=== PATIENT | female | born 1960 | race Caucasian/White ===

== ENCOUNTER 2018-05-15 08:14 | Inpatient (IN) ==
--- NOTE | 2018-05-14 21:26 | Discharge Summary ---
<Isael Whitfield - Last Filed: 05/15/18 08:39> Orders not resulted at time of discharge: Pending orders 05/15/18 00:01 XR shoulder complete LT [XR] Routine H/H [Hemoglobin and Hematocrit] [HEME] Routine Date of Encounter: 05/15/18 - Discharge Diagnosis (1) Obesity (BMI 30.0-34.9) Priority: Secondary Status: Chronic (2) HTN (hypertension) Priority: Secondary Status: Chronic Qualifiers: Hypertension type: essential hypertension Qualified Code(s): I10 - Essential (primary) hypertension (3) Status post reverse total arthroplasty of left shoulder Priority: Primary Status: Acute (4) Rotator cuff arthropathy of left shoulder Priority: Primary Status: Chronic - Hospital Course Hospital course: Ms. Bah is a 57 year old female - Time Spent with Patient Total time spent providing and/or coordinating discharge services: - Discharge Medications Home Medications: Escitalopram [Lexapro] 10 mg PO DAILY 10/16/16 [History] Losartan Potassium [Cozaar] 50 mg PO DAILY 10/16/16 [History] OxyCODONE Immed Rel [Roxicodone 5 MG] 5 mg PO Q6HR PRN 7 Days #28 tablet [Rx] BuPROPion XL (24 HR) [Wellbutrin XL] 150 mg PO DAILY 05/15/18 [History] Calcium Carbonate [Calcium] 1,200 mg PO DAILY 05/15/18 [History] Cholecalciferol (D-3) [Vitamin D] 1,000 unit PO DAILY 05/15/18 [History] Multivitamin [One Daily Essential] 1 tab PO DAILY 05/15/18 [History] Allergies/Adverse Reactions: 3 Allergy/AdvReac Type Severity Reaction Status Date / Time Poison Anna Extract Allergy Hives Verified 05/15/18 13:34 prednisone AdvReac See Verified 05/15/18 13:34 Comments Primary care physician: Rosana Gallagher CNP - Patient Status Disposition: Home, Self-Care Condition: Good - Discharge Instructions Follow Up With: Rosana Gallagher CNP [Primary Care Provider] - <Renee Casas - Last Filed: 05/15/18 17:37> Date of Encounter: 05/15/18 Time of Encounter: 17:37 - Discharge Diagnosis (1) Status post reverse total arthroplasty of left shoulder Priority: Primary Status: Acute Comments: Opsite dressing, leave intact until first post-operative visit. Zipline in place , plan to remove at post-operative day #14-16. If dressing becomes >50% saturated, contact office, remove dressing and place appropriate dressing in its place. Do not allow for dressing to get wet. Shoulder Precautions x 6 weeks. Apply cold therapy wrap 3-6x/day for 20 minutes at a time. Encourage ambulation throughout the day. Use Incentive spirometer 10x/hour. Elevate affected extremity above heart as tolerated. NWB to affected upper extremity x 6 weeks. Will remove brace at first post-operative appointment. OK to remove during PT/ OT and Home exercises. (2) Rotator cuff arthropathy of left shoulder Priority: Primary Status: Chronic (3) HTN (hypertension) Priority: Secondary Status: Chronic Qualifiers: Hypertension type: essential hypertension Qualified Code(s): I10 - Essential (primary) hypertension - Hospital Course Hospital course: Ms. Bah is a 57 year old female, s/p Left TSR-reverse, history of HTN. Patient doing well; with uneventful post-operative course. Stable for discharge. Afebrile, vital signs stable. Labs reviewed. H/H - stable, asymptomatic Pain control: adequate Participating in PT. All questions and concerns addressed. Educated on use of incentive spirometer. Encouraged ambulation and proper hydration. Patient educated on post-operative restrictions and post-operative care. Assessment and plan: Continue with postoperative care Discharge plan: Home, discharge today. - Time Spent with Patient Total time spent providing and/or coordinating discharge services: Primary care physician: Rosana Gallagher CNP - Patient Status Functional capacity at discharge: independent ambulation Overall status at discharge: patient is back to baseline - Diet and Activity Activity: as per physical therapy Diet: advance to your usual diet
--- NOTE | 2018-05-15 08:39 | History & Physical Report ---
Date of Encounter: 05/15/18 Time of Encounter: 08:38 24 Hour HP Update - Instructions Instructions: If the History and Physical is less than 30 days old and was completed prior to A.M. admission and or procedure and has NOT been updated on calendar day of procedure please complete this update prior to performing procedure. - Update Patient reports changes in Medical Condition: No Changes in examination, assessment, or condition: No Changes in Medication: No Preop tests/diagnostics Reviewed: Yes Surgery Remains Indicated: Yes Consent for Planned Operative Procedure(s) Verified: Yes - Pre-Operative Checklist Preoperative Checklist Indicated: No Prophylactic Antibiotic Ordered: Yes Is VTE Prophylaxis Indicated?: Yes
[2018-05-15] MEDS ORDERED: Famotidine 20 MG/2 ML VIAL IVP ONE (08:43)
[2018-05-15] MEDS ORDERED: Acetaminophen IV 1,000 MG/100 ML INFUS..BTL IVPB ONE (08:44)
[2018-05-15] MEDS ORDERED: Ringers Solution, Lactated 1,000 ML IVC SCH ×2 (08:45→12:08)
[2018-05-15] MEDS ORDERED: CeFAZolin Syr 2,000MG/20 ML 2,000 MG/20 ML SYRINGE IVPB ONE (09:06)
[2018-05-15] MEDS ORDERED: Tetracaine/PF 20 MG/2 ML AMPUL ONE (09:11)
[2018-05-15] MEDS ORDERED: Bupivacaine/Clonidine Syringe 1 EACH SYRINGE ONE (09:11)
[2018-05-15] MEDS ORDERED: ROPIVACAINE HCL/PF 0.5% 30 ML VIAL ONE (09:11)
--- NOTE | 2018-05-15 09:12 | Anesthesia Evaluation PreOp ---
Date of Encounter: 05/15/18 Time of Encounter: 09:10 - Past History Planned Operation: Rverse Ball TotalShoulder Replacement Cardiac History: HTN, Hyperlipidemia Pulmonary History: Denies Any Significant HX DONOR SERVICES TECHNICIAN History: Denies Any Significant HX Other Medical History: Denies Any Significant HX Anesthesia History: No Prior Anesthetic Complications Alcohol Use: occasionally Drug use: none Medications and Allergies Bupropion HCl [Wellbutrin Xl] 300 mg PO DAILY 10/16/16 [History] Escitalopram [Lexapro] 10 mg PO DAILY 10/16/16 [History] Losartan Potassium [Cozaar] 50 mg PO DAILY 10/16/16 [History] Multivitamin [Multi-Day Vitamins] 1 each PO DAILY 10/16/16 [History] OxyCODONE Immed Rel [Roxicodone 5 MG] 5 mg PO Q6HR PRN 7 Days #28 tablet [Rx] 3 Allergy/AdvReac Type Severity Reaction Status Date / Time prednisone Allergy See Verified 03/09/18 13:53 Comments - Meds/Allergy Pre-op Review Medications Reviewed: Yes Allergies Reviewed: Yes Beta Blockers on Current Med List: No Anesthesia Results - Labs Laboratory Tests 05/13/18 05/13/18 09:06 09:06 Hgb 15.5 H Hct 45.9 H Plt Count 344 Sodium 138 Potassium 4.1 BUN 13 Creatinine 0.72 Anesthesia Exam O2 Sat Height 1.6 m Height 1.6 m Weight 77.111 kg Weight 77.111 kg O2 Sat by Pulse Oximetry 93 Vital Signs Temp Pulse Resp BP Pulse Ox 98.5 F 77 18 97/65 93 05/15/18 08:47 05/15/18 08:47 05/15/18 08:47 05/15/18 08:47 05/15/18 08:47 Height: 5'3 Weight: 170 lbs NPO (# of Hours): MN Pain Scale: 0 - HEENT Pupil (Motor): Pupils equal, EOMI Mallampati: II Denture Type: Upper: Complete Oral Opening: Greater than 3 - DONOR SERVICES TECHNICIAN LOC: Oriented DONOR SERVICES TECHNICIAN Motor: Normal RUE, Normal LUE, Normal RLE, Normal LLE, Normal Face DONOR SERVICES TECHNICIAN Sensory: Normal: RUE, LUE, RLE, LLE, Face - Cardiac Rhythm: Regular Murmur: None JVD: No Carotid Bruit: No - Pulmonary Breath Sounds: bilateral Clear Respiratory Effort: Symmetrical Anesthesia Assess/Plan ASA Score: 2 Modified Line [place] Scale for Level of Consciousness: Cooperative, oriented, and tranquil Anesthetic Plan: General, Regional Monitoring Plan: Standard Monitors Recovery Plan: PACU (Discussed GA and RA, agrees to proceed)
[2018-05-15] MEDS ORDERED: *HR* HYDROmorphone 2 MG TABLET PO PRN (09:18)
[2018-05-15] MEDS ORDERED: *HR* Promethazine 25 MG/ML VIAL IVP PRN (09:18)
[2018-05-15] MEDS ORDERED: *HR* OxyCODONE Immed Rel 5 MG TABLET PO PRN ×2 (09:18→12:08)
[2018-05-15] MEDS ORDERED: *HR* PHENYLEPHRINE 1,000 MCG/10 ML SYRINGE IVP ONE (10:26)
[2018-05-15] MEDS ORDERED: Lidocaine -MPF 2% 2 ML VIAL ONE (10:26)
[2018-05-15] MEDS ORDERED: *HR* Propofol 200 MG/20 ML VIAL IVP ONE (10:26)
[2018-05-15] MEDS ORDERED: Ondansetron 4 MG/2 ML VIAL ONE (10:26)
[2018-05-15] MEDS ORDERED: *HR* Midazolam HCl 2 MG/2 ML VIAL ONE (10:26)
[2018-05-15] MEDS ORDERED: *HR* FentaNYL (PF) 100 MCG/2 ML VIAL ONE (10:26)
--- NOTE | 2018-05-15 10:33 | Anesthesia Procedures ---
Date of Encounter: 05/15/18 Time of Encounter: 10:00 Procedures: Anesthesia - Nerve Block Procedure Date: 05/15/18 Time: 10:00 Allergies/Adv Reactions: prednisone Pre-op Diagnosis: L shoulder RTC arthropathy Surgical Procedure: L TSR, Reverse Checklist: Correct Patient Identifier, Correct procedure, History checked Correct side: Left Blood Thinner: No Monitor Applied: EKG, BP, Pulse Oximetry Supplemental Oxygen via Nasal Cannula (L/min): 3 Sedation: Versed (mg): 2 Sedation: Fentanyl (mcg): 50 Indication: Post Op Analgesia (requested by Dr. Whitfield) Pre-op Neuro Deficits: No Block Type: Supraclavicular, Other (ICB, SCP) Catheter placed: No Sterile Technique: Yes Ultrasound used: Yes Anatomy identified: Yes Visual spread of Local: Yes Neuro Stimulation: No Blood on Needle Aspiration: No Smooth Injection of Local: Yes Pain with Injection of Local: No Prep: Chlorhexadine Needle: 22 x 50 mm Stimuplex Local: 0.25% Bupivicaine w/Clonidine 20 mcg/cc (5mL for SCP; 7.5mL for ICB), Tetracaine (2mL of 1% for supraclavicular n. block), Ropivacaine (30mL of 0.5% for supraclavicular n. block) Complications: None/effective block Vitals: see holding vital signs note Comments: successful on 1st attempt; patient tolerated procedure well; performed by DEBBIE De La Vega under direct supervision; VSS
--- NOTE | 2018-05-15 10:52 | Orthopedic Operative Note ---
Date of procedure: 05/15/18 Pre-op diagnosis: Left cuff tear arthropathy Post-op diagnosis: same Procedure: Procedure: Total Shoulder Replacment Reverse, left Estimated blood loss: 100 cc Hardware: Metal and polyethylene replacement: Arthrex medium glenoid baseplate , 2 4.5 screws. 1 6.5 screw, 39+4 glenosphere, 7 humeral stem, poly insert 3 Exam Under anesthesia: Full motion no instability Procedural Notes: Grade 4 arthritic changes humeral head rotator cuff tear Operative procedure: The patient was brought to the operating room and placed on the operating room table. After general anesthesia was administered the operative shoulder was examined. Findings were noted. The patient was placed in the modified beachchair position. All pressure points were padded appropriately. And the head was stabilized in the neutral position. The operative extremity was prepped and draped in the sterile surgical fashion. The patient received IV antibiotics prior to skin incision. A standard deltopectoral approach was made to the operative shoulder. Incision was made to the skin and subcutaneous tissue,hemo stasis was obtained with Bovie cautery. Using careful blunt dissection the cephalic vein was identified and mobilized medially. The deltopectoral interval was developed and the clavipectoral fascia was incised. The subscap was released off the lesser tuberosity and tagged with #2 FiberWire suture. The humerus was dislocated patient noted to have tear supraspinatus tendon, and the humeral cut was made along the anatomic neck. Patient noted to have grade 4 arthritic changes humeral head. Anterior and posterior Bankart retractors were placed to expose the glenoid. The glenoid guide was seated and the centering hole was made. It was reamed with the appropriate reamer. The medium baseplate was seated and secured with (2) 4.5 screws and one 6.5 screw. The baseplate was irrigated and dried and the 39+4 Glenosphere was seated and secured with the Bolton taper. The Bolton taper was tested and found to be secure the humerus was redislocated and prepared with the diaphyseal reamers, followed by a broaching process up to the appropriate size 7 in the patient's anatomic version. The metaphyseal reamer was then utilized. Trial reduction found the shoulder to be relocatable. Trial components were removed and the appropriate 7 stem was impacted in place in the patient's anatomic version. Trial reduction found the shoulder to be relocatable and stable with the appropriate 3 Lisandra Trial component was removed and the real implant was seated and secured the shoulder was reduced. The shoulder had excellent motion and excellent stability and no evidence of dislocation. The deep tissue was irrigated with pulse irrigation. The PA close the shoulder. The deltopectoral interval was closed with a running #1 PDS suture, subcutaneous tissue was irrigated and closed with 0 PDS suture, the skin was closed with Dermabond. The patient was placed in a sterile dressing, abduction brace and extubated. The patient was then transferred to the recovery room in stable condition. Anesthesia: KELSIE Surgeon: Isael Whitfield Was there an assistant professor of life sciences present: No Estimated blood loss (cc): 100 Condition: stable Disposition: PACU
[2018-05-15 11:48] LABS: Hematocrit 39.1 % (35.3-44.9)
[2018-05-15 11:49] LABS: Hemoglobin 12.9 g/dL (11.5-15.4)
[2018-05-15] MEDS ORDERED: *HR* OxyCODONE/APAP 5/325 TABLET PO PRN (12:08)
[2018-05-15] MEDS ORDERED: MOM Conc 10 ML UD.LIQ PO PRN (12:08)
[2018-05-15] MEDS ORDERED: Sennosides 8.6 MG TABLET PO PRN (12:08)
[2018-05-15] MEDS ORDERED: Temazepam 15 MG CAPSULE PO PRN (12:08)
[2018-05-15] MEDS ORDERED: Naloxone 0.4 MG/ML INJ IVP PRN (12:08)
[2018-05-15] MEDS ORDERED: Ondansetron 4 MG/2 ML VIAL IVP PRN (12:08)
[2018-05-15] MEDS ORDERED: traMADol 50 MG TABLET PO PRN (12:08)
[2018-05-15 15:48] VITALS: BP 106/69
[2018-05-15] MEDS ORDERED: *HR* Enoxaparin 30 MG/0.3 ML SYRINGE SQ SCH ×2 (18:00)
== END 2018-05-15 19:15 | disposition home or self-care (01) | DRG 315 ==
LOC: SAMDAY 08:14 → 3NENU 12:06
PROVIDERS: ADMIT Orthopaedic Surgery; ATTEND Orthopaedic Surgery